=== PATIENT | female | born 1995 | race Caucasian/White ===

== ENCOUNTER 2017-08-03 02:49 | Emergency (ER) | payer MEDICAID, OTHER ==
[~2017-08-03] VITALS: Ht 162.6 cm; Wt 81.0 kg
[2017-08-03] MEDS ORDERED: KETOROLAC 60 MG/2 ML VIAL (J1885) IM ONE (04:30)
--- NOTE | 2017-08-03 05:20 | REPUSA ---
HISTORY: Back pain. COMPARISON: Not provided. TECHNIQUE: Multiple thin-section contiguous helically-acquired axially-displayed computed tomographic images of the lumbar spine are obtained from T12 through S1, with images reviewed at soft tissue and bone window. 2D Sagittal and coronal reformatted images are performed. FINDINGS: Mild levoscoliosis apex at L3. There is normal lumbosacral vertebral body height and alignment on this supine, non-weight bearing ex am. Vertebral body mineralization is normal. All of the intervertebral disc spaces have normal height and contour. There is no herniated nucleus p ulposus, canal or foraminal stenosis. No paraspinal masses or collections. IMPRESSION: Mild levoscoliosis apex at L3. No other significant abnormality. Thank you for your kind referral of this patient.
[2017-08-03] MEDS ORDERED: KETO10TAB PO (05:29)
[2017-08-03] MEDS ORDERED: traMADol 50 MG TAB PO ONE (05:30)
[2017-08-03 05:33] VITALS: BP 111/58
== END 2017-08-03 05:42 | disposition home or self-care (01) ==
LOC: M ED 02:49
DX: G89.29 Other chronic pain (principal); M54.5 Low back pain; F17.210 Nicotine dependence, cigarettes, uncomplicated; Z88.8 Allergy status to other drugs, medicaments and biological substances
CPT/HCPCS: 72131; 96372; 99284; J1885

== ENCOUNTER 2018-01-06 08:57 | Emergency (ER) | payer OTHER ==
[2018-01-06] MEDS: PERCOCET 5MG/325MG TAB PO (09:31)
== END 2018-01-06 13:13 | disposition home or self-care (01) ==
LOC: M ED 08:57
DX: S16.1XXA Strain of muscle, fascia and tendon at neck level, initial encounter (principal); S20.229A Contusion of unspecified back wall of thorax, initial encounter; Y92.89 Other specified places as the place of occurrence of the external cause; Y04.8XXA Assault by other bodily force, initial encounter; Y07.03 Male partner, perpetrator of maltreatment and neglect; G89.29 Other chronic pain; Z88.8 Allergy status to other drugs, medicaments and biological substances
CPT/HCPCS: 71046

== ENCOUNTER → 2019-07-22 | Outpatient (CLI) | payer OTHER ==
[~2019-07-22] MED LIST: CYCL5TAB PO; KETO10TAB PO; NAPR-837 PO
[2019-07-22 17:32] LABS: BASO % 0.4 % (0.0-1.0); EOS # 0.3 10^3/uL (0.0-0.5); EOS % 2.6 % (0.0-3.0); HEMATOCRIT 39.1 % (36.0-47.0); LYMPH # 1.6 10^3/uL (1.5-5.0); LYMPH % 15.8 % (24.0-44.0); MEAN CORPUSCULAR HEMOGLOBIN 30.8 pg (27.0-33.0); MEAN CORPUSCULAR HGB CONC 33.2 g/dl (32.0-36.5); MEAN CORPUSCULAR VOLUME 92.7 fl (80.0-96.0); MONO # 0.4 10^3/uL (0.0-0.8); MONO % 4.1 % (0.0-5.0); NEUTROPHILS # 7.9 10^3/uL (1.5-8.5); NEUTROPHILS % 76.8 % (36.0-66.0); PLATELET COUNT, AUTOMATED 221 10^3/uL (150-450); RED BLOOD COUNT 4.22 10^6/uL (4.00-5.40); WHITE BLOOD COUNT 10.2 10^3/uL (4.0-10.0)
[2019-07-22 19:40] LABS: HIV 1&2 SCREEN CENTAUR NEGATIVE (NEGATIVE); RUBELLA IgG QUALITATIVE IMMUNE (IMMUNE)
[2019-07-22 22:46] LABS: CHLAMYDIA DNA AMPLIFICATION NEGATIVE (NEGATIVE); GC DNA AMPLIFICATION NEGATIVE (NEGATIVE)
== END ==
LOC: M SMT 14:06
PROVIDERS: ATTEND Advanced Practice Midwife
DX: Z34.81 Encounter for supervision of other normal pregnancy, first trimester (principal); Z3A.00 Weeks of gestation of pregnancy not specified

== ENCOUNTER → 2019-09-11 | Outpatient (CLI) | payer OTHER, MEDICAID | LOC: M WHC 14:03 | PROVIDERS: ATTEND Obstetrics & Gynecology | DX: Z53.9 Procedure and treatment not carried out, unspecified reason (principal) ==

== ENCOUNTER → 2019-10-06 | Outpatient (CLI) | payer OTHER ==
--- NOTE | 2019-10-07 04:27 | REP ---
Clinical: Anatomical evaluation. Comparison: None . Findings: Examination demonstrates a single live intrauterine in cephalic presentation. motion is identified by technologist. Placenta is noted posterior and grade I without evidence for placenta previa or abruption. Amniotic fluid volume is normal. Cervix measures 3.4 cm in length and appears closed. No evidence for nuchal cord. Gestational age by current measurements 23 weeks 3 days with VIRGINIE 01/30/2020 . FHR equals 150 beats per minute. BPD 5.8 cm 23 weeks 5 days HC 21.2 cm 23 weeks 2 days AC 19.3 cm 24 weeks 0 days FL 4.3 cm 24 weeks 0 days HC/AC ratio 1.10 Estimated weight 645 grams ( 60th percentile). Anatomical assessment demonstrates normal structures including cranium, choroid plexus, cavum, cerebellum/posterior fossa, facial features, lungs, four-chamber heart/ventricular outflow tracts, diaphragm, stomach, cord insertion/three-vessel cord, kidneys/bladder, spine, and extremities. Impression: Single live intrauterine in cephalic presentation demonstrating appropriate interval growth. Anatomical assessment is complete and normal.
== END ==
LOC: M WHC 09:57
PROVIDERS: ATTEND Obstetrics & Gynecology
DX: Z34.92 Encounter for supervision of normal pregnancy, unspecified, second trimester (principal); Z3A.23 23 weeks gestation of pregnancy

== ENCOUNTER 2020-01-25 17:42 | Inpatient (IN) | payer OTHER, SELFPAY ==
[2020-01-25] MEDS ORDERED: LR 1,000 ML IV SCH (18:02)
[2020-01-25] MEDS ORDERED: LACTATED RINGER'S 1000 ML IV STA (18:02)
[2020-01-25] MEDS ORDERED: PENICILLIN G POTASSIUM IV 5 MU in D5W MINI-BAG PLUS 100 ML IV STA (18:02)
[2020-01-25] MEDS ORDERED: PROMETHAZINE INJ 25 MG/ML VIAL (J2550) IV ONE (18:15)
[2020-01-25] MEDS ORDERED: BUTORPHANOL 2 MG/ML INJ (J0595) IV ONE (18:15)
[2020-01-25] MEDS ORDERED: OXYTOCIN 30 UNITS IN 0.9% NaCl 500ML IV BAG (J2590) As Ordered ONE (18:19)
[2020-01-25 18:36] LABS: HEMATOCRIT 36.4 % (36.0-47.0); HEMOGLOBIN 11.8 g/dl (12.0-15.5); MEAN CORPUSCULAR HEMOGLOBIN 25.2 pg (27.0-33.0); MEAN CORPUSCULAR HGB CONC 32.4 g/dl (32.0-36.5); MEAN CORPUSCULAR VOLUME 77.8 fl (80.0-96.0); PLATELET COUNT, AUTOMATED 256 10^3/uL (150-450); RED BLOOD COUNT 4.68 10^6/uL (4.00-5.40); WHITE BLOOD COUNT 15.9 10^3/uL (4.0-10.0)
[2020-01-25] MEDS ORDERED: OXYTOCIN DRIP 30 UNITS in IV 1 EA IV SCH (18:56)
[2020-01-25] MEDS ORDERED: IBUPROFEN 600 MG TAB PO PRN (19:00)
[2020-01-25] MEDS ORDERED: DIBUCAINE 1% OINTMENT 30GM TOP PRN (19:00)
[2020-01-25] MEDS ORDERED: METHYLERGONOVINE MALEATE 0.2 MG TAB PO PRN (19:00)
[2020-01-25] MEDS ORDERED: OXYTOCIN INJ 10 UNITS/ML VIAL (J2590) IM ONE (19:00)
[2020-01-25] MEDS ORDERED: ANUSOL HC CREAM 30GM TOP PRN (19:00)
[2020-01-25] MEDS ORDERED: MEASLES,MUMPS,RUBELLA VACCINE INJ (MMR-II) (90707) SC SCH (19:00)
[2020-01-25] MEDS ORDERED: DOCUSATE SODIUM 100 MG CAP PO PRN (19:00)
[2020-01-25] MEDS ORDERED: ACETAMINOPHEN 500 MG TAB PO PRN (19:00)
[2020-01-25] MEDS ORDERED: RHOGAM 300 MCG (1500 IU) INJ (J2790) IM SCH (19:00)
[2020-01-25] MEDS ORDERED: ACETAMINOPHEN TAB 650MG DOSE (2X325MG) PO PRN (19:00)
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
[2020-01-25 19:12] VITALS: BP 148/88
[2020-01-25 19:27] VITALS: BP 131/79
[2020-01-25 19:42] VITALS: BP 136/84
[2020-01-25 19:57] VITALS: BP 116/63
[2020-01-25 20:20] VITALS: BP 138/87
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
[2020-01-25 20:52] LABS: AMPHETAMINES URINE REFLEX NEGATIVE (NEGATIVE); BARBITURATES URINE REFLEX NEGATIVE (NEGATIVE); BENZODIAZEPINES URINE REFLEX NEGATIVE (NEGATIVE); CANNABINOIDS URINE REFLEX NEGATIVE (NEGATIVE); COCAINE METABOLITE URINE REFLE NEGATIVE (NEGATIVE); METHADONE URINE REFLEX NEGATIVE (NEGATIVE); OPIATES URINE REFLEX NEGATIVE (NEGATIVE); PHENCYCLIDINE URINE REFLEX NEGATIVE (NEGATIVE)
[2020-01-25] MEDS ORDERED: **PENDING PCN ENTRY XX SCH (21:00)
[2020-01-25] MEDS: IBUPROFEN 800 MG TAB PO PRN (21:55)
[2020-01-25] MEDS ORDERED: PENICILLIN G POTASSIUM IV 2.5 MU in IV 1 EA IV SCH (22:15)
[2020-01-26 06:38] VITALS: BP 119/64
[2020-01-26] MEDS: PRENATAL VITAMINS CHEWABLE TABLET PO SCH (09:00)
--- NOTE | 2020-01-26 09:43 | IPNPDOC ---
Progress Note Date of Service: January 26, 2020 Day#: 1 Progress Note SUBJECT: Patient is a 24-year-old female who is now a who had a that was precipitous. She has been ambulating, voiding spontaneously without issue and tolerating regular diet. OBJECTIVE: VITAL SIGNS: Within normal limits, afebrile. Alert and oriented times three. Breath sounds clear to auscultation. Heart rate: Regular rate and rhythm, no murmurs, rubs or gallops. Abdomen: Fundus firm at U-1. Soft, NTTP. Minimal lochia. ASSESSMENT: Day 1 PLAN: 1. Plan discharge to home tomorrow. 2. Tylenol and Motrin for pain. VS, I&O, 24H, Fishbone Vital Signs/I&O Vital Signs Date Time Temp Pulse Resp B/P (MAP) Pulse Ox O2 Delivery O2 Flow Rate FiO2 01/26/20 06:38 98.9 72 18 119/64 (82) Room Air I&O- Last 24 Hours up to 6 AM 01/26/20 06:00 Output Total 500 ml Balance -500 ml Laboratory Data 24H LABS Laboratory Tests 2 01/25/20 18:02: Nucleated Red Blood Cells % (auto) 0.0, Syphilis Serology NONREACTIVE 01/25/20 18:12: Serology Scanned Report Hepatitis B Testing 01/25/20 20:18: Urine Opiates Screen NEGATIVE, Urine Methadone Screen NEGATIVE, Urine Barbiturates Screen NEGATIVE, Urine Phencyclidine Screen NEGATIVE, Urine Amphetamines Screen NEGATIVE, Urine Benzodiazepines Screen NEGATIVE, Urine Cocaine Metabolite Screen NEGATIVE, Urine Cannabinoids Screen NEGATIVE CBC/BMP Laboratory Tests 01/25/20 18:02 RANI MARTIN CNM January 26, 2020 09:43
[2020-01-26 18:00] VITALS: BP 115/75
[2020-01-26] MEDS: IBUPROFEN 800 MG TAB PO PRN (19:06)
[2020-01-27 06:00] VITALS: BP 102/55
[2020-01-27] MEDS: PRENATAL VITAMINS CHEWABLE TABLET PO SCH (09:00)
== END 2020-01-27 18:00 | disposition home or self-care (01) | DRG 560 ==
LOC: M LDO 17:42 → M LDI 18:02 → M OBS 20:42
PROVIDERS: ADMIT Advanced Practice Midwife; ATTEND Advanced Practice Midwife
PROC: 10E0XZZ Delivery of Products of Conception, External Approach (ICD-10-PCS; principal; 2020-01-25)
PROC: 10907ZC Drainage of Amniotic Fluid, Therapeutic from Products of Conception, Via Natural or Artificial Opening (ICD-10-PCS; 2020-01-25)
DX: O99.824 Streptococcus B carrier state complicating childbirth (principal); O40.3XX0 Polyhydramnios, third trimester, not applicable or unspecified; Z37.0 Single live birth; Z3A.39 39 weeks gestation of pregnancy; Z91.410 Personal history of adult physical and sexual abuse; F17.200 Nicotine dependence, unspecified, uncomplicated; O69.89X0 Labor and delivery complicated by other cord complications, not applicable or unspecified; O77.0 Labor and delivery complicated by meconium in amniotic fluid; O62.3 Precipitate labor; O99.334 Smoking (tobacco) complicating childbirth